=== PATIENT | male | born 1975 | race Caucasian/White ===

== ENCOUNTER 2018-10-02 03:12 | Observation (INO) | payer SELFPAY ==
[2018-10-02] MEDS ORDERED: Sodium Chloride 0.9% 1,000 ML IV ONE (03:15)
[2018-10-02] MEDS ORDERED: Ondansetron 4 MG/2 ML SDV IVPUSH ONE (03:15)
[2018-10-02] MEDS ORDERED: Ketorolac 30 MG/ML SDV IVPUSH ONE (03:15)
[2018-10-02] MEDS ORDERED: Sodium Chloride 0.9% 2.5 ML Syringe FLUSH PRN (03:15)
[2018-10-02] MEDS ORDERED: Sodium Chloride 0.9% 10 ML Syringe FLUSH PRN (03:15)
[2018-10-02] MEDS ORDERED: Morphine 2 MG/ML Syringe IVPUSH ONE ×2 (03:15→05:22)
--- NOTE | 2018-10-02 03:19 | EDM.PDOC ---
<Amy Reyes - Last Filed: 10/02/18 04:47> ED HPI GENERAL MEDICAL PROBLEM - General Chief Complaint: Abdominal Pain Stated Complaint: ABDOMINAL PAIN Time Seen by Provider: 10/02/18 03:14 - History of Present Illness INITIAL COMMENTS - FREE TEXT/NARRATIVE: HISTORY AND PHYSICAL: History of present illness: The patient is a 42-year-old male who presents with complaints of epigastric and right upper and mid abdominal pain that has been ongoing for 36 hours. He says he has a history of pancreatitis but there is no pain on the left and he also has a history of a cholecystectomy. He says the pain came on gradually and it does not radiate to his flank and he has no chest pain or upper respiratory symptoms. The patient says he did not have any [id number] pain meds to take 3 is used nothing to try to help with the pain over the last 36 hours. He has not had a fever but he has had nausea and vomiting. He has not had diarrhea and in fact he has not had a bowel movement for the last 2 or more days. He says he has been urinating and has no complaints of dysuria frequency or hematuria. He denies a history of appendectomy or any colon issues. He says he does not have a history of food intolerance and he does not take a lot of nonsteroidals or antacid products. He describes the pain as deep stabbing aching and burning and does radiate to the right lower abdomen. 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 Review of systems: As per history of present illness and below otherwise all systems reviewed and negative. Past medical history: As per history of present illness and as reviewed below otherwise noncontributory. Surgical history: As per history of present illness and as reviewed below otherwise noncontributory. Social history: No reported history of drug or alcohol abuse. Family history: As per history of present illness and as reviewed below otherwise noncontributory. Physical exam: General: Well-developed well-nourished man who is nontoxic and vital signs are noted by me HEENT: Atraumatic, normocephalic, negative for conjunctival pallor or scleral icterus, mucous membranes moist, throat clear, neck supple, nontender, trachea midline. Lungs: Clear to auscultation, breath sounds equal bilaterally, chest nontender. Heart: S1S2, regular and rhythm no overt murmurs. Abdomen: Soft, nondistended, mild epigastric right upper and right mid quadrant tenderness without rebound or guarding. Bowel sounds are hypoactive. Patient's pain seems to be more exaggerated than his exam. Negative for masses or hepatosplenomegaly. Negative for costovertebral tenderness. Pelvis: Stable nontender. Genitourinary: Deferred. Rectal: Deferred. Extremities: Atraumatic, negative for cords or calf pain. Neurovascular unremarkable. Neuro: Awake, alert, oriented. Cranial nerves II through XII unremarkable. Cerebellum unremarkable. Motor and sensory unremarkable throughout. Exam nonfocal. Diagnostics: CBC CMP INR amylase lipase H. pylori lactate UA with reflex CT scan of the abdomen and pelvis Therapeutics: IV fluids morphine Toradol Zofran and Protonix 0500: Case endorsed to Dr Keys to follow-up CT scan and disposition patient. Impression: Epigastric/right-sided abdominal pain, H. pylori positive Definitive disposition and diagnosis as appropriate pending reevaluation and review of above. Right Abdomen Pain Score (Numeric/FACES): 6 - Related Data Allergies Allergy/AdvReac Type Severity Reaction Status Date / Time No Known Allergies Allergy Verified 10/02/18 03:18 Home Meds: Home Meds . [No Known Home Meds] 10/02/18 [History] ED ROS GENERAL - Review of Systems Review Of Systems: ROS reveals no pertinent complaints other than HPI. ED EXAM, GENERAL - Physical Exam Exam: See Below (see Dictation) Course - Vital Signs Last Recorded V/S: Last Vital Signs Temp 97 F 10/02/18 05:14 Pulse 80 10/02/18 05:14 Resp 18 10/02/18 05:14 BP 140/99 H 10/02/18 05:14 Pulse Ox 98 10/02/18 05:14 - Orders/Labs/Meds Orders: Active Orders 24 hr Category Date Time Status CULTURE URINE [RM] Stat Lab 10/02/18 03:20 Received Sodium Chloride 0.9% [Saline Flush] Med 10/02/18 03:15 Active 10 ml FLUSH ASDIRECTED PRN Sodium Chloride 0.9% [Saline Flush] Med 10/02/18 03:15 Active 2.5 ml FLUSH ASDIRECTED PRN Saline Lock Insert [OM.PC] Stat Oth 10/02/18 03:14 Ordered Medication Orders Sodium Chloride (Saline Flush) 10 ml FLUSH ASDIRECTED PRN PRN Reason: Keep Vein Open Sodium Chloride (Saline Flush) 2.5 ml FLUSH ASDIRECTED PRN PRN Reason: Keep Vein Open Labs: Laboratory Tests 10/02/18 10/02/18 10/02/18 Range/Units 03:20 03:20 03:27 WBC 13.81 H (4.0-11.0) K/uL RBC 5.88 (4.50-5.90) M/uL Hgb 18.7 H (13.0-17.0) g/dL Hct 52.7 H (38.0-50.0) % MCV 89.6 (80.0-98.0) fL MCH 31.8 (27.0-32.0) pg MCHC 35.5 (31.0-37.0) g/dL RDW Std Deviation 43.9 (28.0-62.0) fl RDW Coeff of Case 13 (11.0-15.0) % Plt Count 341 (150-400) K/uL MPV 8.90 (7.40-12.00) fL Neut % (Auto) 51.9 (48.0-80.0) % Lymph % (Auto) 33.9 (16.0-40.0) % [place] % (Auto) 8.3 (0.0-15.0) % Eos % (Auto) 5.4 (0.0-7.0) % Baso % (Auto) 0.5 (0.0-1.5) % Neut # (Auto) 7.2 H (1.4-5.7) K/uL Lymph # (Auto) 4.7 H (0.6-2.4) K/uL [place] # (Auto) 1.1 H (0.0-0.8) K/uL Eos # (Auto) 0.7 (0.0-0.7) K/uL Baso # (Auto) 0.1 (0.0-0.1) K/uL Nucleated RBC % 0.0 /100WBC Nucleated RBCs # 0 K/uL INR Lactate (0.20-2.00) mmol/L Sodium (136-148) mmol/L Potassium (3.5-5.1) mmol/L Chloride (98-107) mmol/L Carbon Dioxide (21.0-32.0) mmol/L BUN (7.0-18.0) mg/dL Creatinine (0.8-1.3) mg/dL Est Cr Clr Drug Dosing mL/min Estimated GFR (MDRD) ml/min Glucose (74-106) mg/dL Calcium (8.5-10.1) mg/dL Total Bilirubin (0.2-1.0) mg/dL AST (15-37) IU/L ALT (14-63) IU/L Alkaline Phosphatase (46-116) U/L Total Protein (6.4-8.2) g/dL Albumin (3.4-5.0) g/dL Globulin (2.6-4.0) g/dL Albumin/Globulin Ratio (0.9-1.6) Amylase (25-115) U/L Lipase (73-393) U/L Urine Color YELLOW Urine Appearance CLEAR Urine pH 6.5 (5.0-8.0) Ur Specific [place] 1.020 (1.001-1.035) Urine Protein NEGATIVE (NEGATIVE) mg/dL Urine Glucose (UA) NEGATIVE (NEGATIVE) mg/dL Urine Ketones NEGATIVE (NEGATIVE) mg/dL Urine Occult Blood NEGATIVE (NEGATIVE) Urine Nitrite NEGATIVE (NEGATIVE) Urine Bilirubin NEGATIVE (NEGATIVE) Urine Urobilinogen 1.0 (<2.0) EU/dL Ur Leukocyte Esterase TRACE H (NEGATIVE) Urine RBC 0-2 (0-2/HPF) Urine WBC 2-4 (0-5/HPF) Ur Epithelial Cells RARE (NONE-FEW) Urine Bacteria FEW (NEGATIVE) Urine Opiates Screen NEGATIVE (NEGATIVE) Ur Oxycodone Screen NEGATIVE (NEGATIVE) Urine Methadone Screen NEGATIVE (NEGATIVE) Ur Barbiturates Screen NEGATIVE (NEGATIVE) Ur Phencyclidine Scrn NEGATIVE (NEGATIVE) Ur Amphetamine Screen NEGATIVE (NEGATIVE) U Methamphetamines Scrn NEGATIVE (NEGATIVE) U Benzodiazepines Scrn NEGATIVE (NEGATIVE) U Cocaine Metab Screen NEGATIVE (NEGATIVE) U Marijuana (THC) Screen NEGATIVE (NEGATIVE) H. pylori IgG Antibody (NEG) 10/02/18 10/02/18 10/02/18 Range/Units 03:27 03:27 03:27 WBC (4.0-11.0) K/uL RBC (4.50-5.90) M/uL Hgb (13.0-17.0) g/dL Hct (38.0-50.0) % MCV (80.0-98.0) fL MCH (27.0-32.0) pg MCHC (31.0-37.0) g/dL RDW Std Deviation (28.0-62.0) fl RDW Coeff of Case (11.0-15.0) % Plt Count (150-400) K/uL MPV (7.40-12.00) fL Neut % (Auto) (48.0-80.0) % Lymph % (Auto) (16.0-40.0) % [place] % (Auto) (0.0-15.0) % Eos % (Auto) (0.0-7.0) % Baso % (Auto) (0.0-1.5) % Neut # (Auto) (1.4-5.7) K/uL Lymph # (Auto) (0.6-2.4) K/uL [place] # (Auto) (0.0-0.8) K/uL Eos # (Auto) (0.0-0.7) K/uL Baso # (Auto) (0.0-0.1) K/uL Nucleated RBC % /100WBC Nucleated RBCs # K/uL INR 0.99 Lactate (0.20-2.00) mmol/L Sodium 140 (136-148) mmol/L Potassium 4.6 (3.5-5.1) mmol/L Chloride 102 (98-107) mmol/L Carbon Dioxide 27.2 (21.0-32.0) mmol/L BUN 12 (7.0-18.0) mg/dL Creatinine 1.2 (0.8-1.3) mg/dL Est Cr Clr Drug Dosing 95.14 mL/min Estimated GFR (MDRD) > 60.0 ml/min Glucose 118 H (74-106) mg/dL Calcium 9.2 (8.5-10.1) mg/dL Total Bilirubin 0.7 (0.2-1.0) mg/dL AST 19 (15-37) IU/L ALT 43 (14-63) IU/L Alkaline Phosphatase 70 (46-116) U/L Total Protein 7.4 (6.4-8.2) g/dL Albumin 3.9 (3.4-5.0) g/dL Globulin 3.5 (2.6-4.0) g/dL Albumin/Globulin Ratio 1.1 (0.9-1.6) Amylase 39 (25-115) U/L Lipase 77 (73-393) U/L Urine Color Urine Appearance Urine pH (5.0-8.0) Ur Specific [place] (1.001-1.035) Urine Protein (NEGATIVE) mg/dL Urine Glucose (UA) (NEGATIVE) mg/dL Urine Ketones (NEGATIVE) mg/dL Urine Occult Blood (NEGATIVE) Urine Nitrite (NEGATIVE) Urine Bilirubin (NEGATIVE) Urine Urobilinogen (<2.0) EU/dL Ur Leukocyte Esterase (NEGATIVE) Urine RBC (0-2/HPF) Urine WBC (0-5/HPF) Ur Epithelial Cells (NONE-FEW) Urine Bacteria (NEGATIVE) Urine Opiates Screen (NEGATIVE) Ur Oxycodone Screen (NEGATIVE) Urine Methadone Screen (NEGATIVE) Ur Barbiturates Screen (NEGATIVE) Ur Phencyclidine Scrn (NEGATIVE) Ur Amphetamine Screen (NEGATIVE) U Methamphetamines Scrn (NEGATIVE) U Benzodiazepines Scrn (NEGATIVE) U Cocaine Metab Screen (NEGATIVE) U Marijuana (THC) Screen (NEGATIVE) H. pylori IgG Antibody POSITIVE H (NEG) 10/02/18 Range/Units 03:27 WBC (4.0-11.0) K/uL RBC (4.50-5.90) M/uL Hgb (13.0-17.0) g/dL Hct (38.0-50.0) % MCV (80.0-98.0) fL MCH (27.0-32.0) pg MCHC (31.0-37.0) g/dL RDW Std Deviation (28.0-62.0) fl RDW Coeff of Case (11.0-15.0) % Plt Count (150-400) K/uL MPV (7.40-12.00) fL Neut % (Auto) (48.0-80.0) % Lymph % (Auto) (16.0-40.0) % [place] % (Auto) (0.0-15.0) % Eos % (Auto) (0.0-7.0) % Baso % (Auto) (0.0-1.5) % Neut # (Auto) (1.4-5.7) K/uL Lymph # (Auto) (0.6-2.4) K/uL [place] # (Auto) (0.0-0.8) K/uL Eos # (Auto) (0.0-0.7) K/uL Baso # (Auto) (0.0-0.1) K/uL Nucleated RBC % /100WBC Nucleated RBCs # K/uL INR Lactate 1.5 (0.20-2.00) mmol/L Sodium (136-148) mmol/L Potassium (3.5-5.1) mmol/L Chloride (98-107) mmol/L Carbon Dioxide (21.0-32.0) mmol/L BUN (7.0-18.0) mg/dL Creatinine (0.8-1.3) mg/dL Est Cr Clr Drug Dosing mL/min Estimated GFR (MDRD) ml/min Glucose (74-106) mg/dL Calcium (8.5-10.1) mg/dL Total Bilirubin (0.2-1.0) mg/dL AST (15-37) IU/L ALT (14-63) IU/L Alkaline Phosphatase (46-116) U/L Total Protein (6.4-8.2) g/dL Albumin (3.4-5.0) g/dL Globulin (2.6-4.0) g/dL Albumin/Globulin Ratio (0.9-1.6) Amylase (25-115) U/L Lipase (73-393) U/L Urine Color Urine Appearance Urine pH (5.0-8.0) Ur Specific [place] (1.001-1.035) Urine Protein (NEGATIVE) mg/dL Urine Glucose (UA) (NEGATIVE) mg/dL Urine Ketones (NEGATIVE) mg/dL Urine Occult Blood (NEGATIVE) Urine Nitrite (NEGATIVE) Urine Bilirubin (NEGATIVE) Urine Urobilinogen (<2.0) EU/dL Ur Leukocyte Esterase (NEGATIVE) Urine RBC (0-2/HPF) Urine WBC (0-5/HPF) Ur Epithelial Cells (NONE-FEW) Urine Bacteria (NEGATIVE) Urine Opiates Screen (NEGATIVE) Ur Oxycodone Screen (NEGATIVE) Urine Methadone Screen (NEGATIVE) Ur Barbiturates Screen (NEGATIVE) Ur Phencyclidine Scrn (NEGATIVE) Ur Amphetamine Screen (NEGATIVE) U Methamphetamines Scrn (NEGATIVE) U Benzodiazepines Scrn (NEGATIVE) U Cocaine Metab Screen (NEGATIVE) U Marijuana (THC) Screen (NEGATIVE) H. pylori IgG Antibody (NEG) Meds: Medications Generic Name Dose Route Start Last Admin Trade Name Freq PRN Reason Stop Dose Admin Sodium Chloride 10 ml 10/02/18 03:15 Saline Flush FLUSH ASDIRECTED PRN Keep Vein Open Sodium Chloride 2.5 ml 10/02/18 03:15 Saline Flush FLUSH ASDIRECTED PRN Keep Vein Open Discontinued Medications Generic Name Dose Route Start Last Admin Trade Name Freq PRN Reason Stop Dose Admin Sodium Chloride 1,000 mls @ 999 mls/hr 10/02/18 03:15 10/02/18 03:22 Normal Saline IV 10/02/18 04:15 999 mls/hr STAT ONE Administration Iopamidol 100 ml 10/02/18 04:18 10/02/18 04:28 Isovue-370 (76%) IVPUSH 10/02/18 04:19 100 ml ONETIME ONE Administration Ketorolac Tromethamine 30 mg 10/02/18 03:15 10/02/18 03:26 Toradol IVPUSH 10/02/18 03:16 30 mg ONETIME ONE Administration Morphine Sulfate 4 mg 10/02/18 03:15 10/02/18 03:26 Morphine IVPUSH 10/02/18 03:16 4 mg ONETIME ONE Administration Morphine Sulfate 2 mg 10/02/18 05:22 10/02/18 05:27 Morphine IVPUSH 10/02/18 05:23 2 mg ONETIME ONE Administration Ondansetron HCl 4 mg 10/02/18 03:15 10/02/18 03:25 Zofran IVPUSH 10/02/18 03:16 4 mg ONETIME ONE Administration Pantoprazole Sodium 80 mg 10/02/18 04:10 10/02/18 04:28 Protonix Iv IVPUSH 10/02/18 04:11 80 mg .BOLUS ONE Administration Sodium Chloride 20 ml 10/02/18 04:15 10/02/18 04:28 Normal Saline FLUSH 10/02/18 04:16 20 ml NOW STA Administration Departure - Departure Disposition: Refer to Observation Condition: Good Clinical Impression: H. pylori infection Abdominal pain Qualifiers: Abdominal location: unspecified location Qualified Code(s): R10.9 - Unspecified abdominal pain - Discharge Information Forms: ED Department Discharge <Eduardo Keys - Last Filed: 10/02/18 05:37> ED HPI GENERAL MEDICAL PROBLEM - History of Present Illness INITIAL COMMENTS - FREE TEXT/NARRATIVE: Patient is retired a couple of repeat doses of morphine still has significant 8 out of 10 pain rocking back and forth feel he'll do well at home is received maximal treatment as above with minimal benefit Admitted the patient for pain control further evaluation and treatment possible surgical consultation ED ROS GENERAL - Review of Systems Review Of Systems: See Below ED EXAM, GENERAL - Physical Exam Exam: See Below Departure - Departure Time of Disposition: 05:37 Condition: Fair
[2018-10-02 04:00] LABS: CHLORIDE,CL 102 mmol/L (98-107); SODIUM,NA 140 mmol/L (136-148)
[2018-10-02] MEDS ORDERED: Pantoprazole 40 MG Vial IVPUSH ONE (04:10)
[2018-10-02] MEDS ORDERED: Sodium Chloride 0.9% 20 ML SDV FLUSH STA (04:15)
[2018-10-02] MEDS ORDERED: Iopamidol 755 Mg/ML 100 ML Bottle IVPUSH ONE (04:18)
--- NOTE | 2018-10-02 05:11 | CT ---
INDICATION: Abdominal pain TECHNIQUE: CT abdomen and pelvis acquired with IV contrast. 100 mL of Isovue 370 administered. COMPARISON: None available FINDINGS: Lower chest: Unremarkable. Liver: Unremarkable. Spleen: Unremarkable. Pancreas: Mild prominence of the central pancreatic duct measuring up to 4 mm. Gallbladder and bile ducts: Cholecystectomy. Central infrahepatic biliary dilatation could be related to the postcholecystectomy state. Adrenal glands: Unremarkable. Kidneys: Unremarkable. GI tract: Unremarkable. Appendix is normal. Vascular structures: Unremarkable. Lymph nodes: Unremarkable. Miscellaneous: No free air or significant free fluid. Pelvic Organs: A contracted bladder. Unremarkable prostate. Bones: Degenerative changes in the lumbar spine with an L4-5 disc osteophyte complex, narrowing the central canal. IMPRESSION: No evidence of an acute process in the abdomen or pelvis. Mild intrahepatic biliary dilatation could be related to a post cholecystectomy state. If indicated, consider followup evaluation. Dictated by Lex Helm MD @ 10/02/2018 5:11:18 AM Please note that all CT scans at this facility use dose modulation, iterative reconstruction, and/or weight-based dosing when appropriate to reduce radiation dose to as low as reasonably achievable. Dictated by: Lex Helm MD @ 10/02/2018 05:11:23 (Electronically Signed)
[2018-10-02] MEDS: Sodium Chloride 0.9% 1,000 ML IV SCH ×2 (07:50→16:02)
[2018-10-02] MEDS: Morphine 2 MG/ML Syringe IVPUSH PRN ×4 (08:00→20:29)
[2018-10-02] MEDS: Enoxaparin 40 MG/0.4 ML Syringe SUBCUT SCH (08:02)
--- NOTE | 2018-10-02 08:31 | PCM.HP ---
H&P History of Present Illness - General Date of Service: 10/02/18 Admit Problem/Dx: Admission Diagnosis/Problem Admission Diagnosis/Problem Abdominal pain Source of Information: Patient History Limitations: Reports: No Limitations - History of Present Illness Initial Comments - Free Text/Narative: The patient is a 42-year-old gentleman who had presented to the emergency department with the chief complaint of severe abdominal pain. The patient has described the pain as sharp and stabbing in the epigastrium which radiates around the sides and to the back. The patient says that this is similar to a crit tightest that he had last year. The patient has been in the area for 10 weeks and he is [place]. The patient is also had nausea and vomiting associated with this. The patient denies any fever or chills. He's had no diarrhea or constipation. He reports alcohol use approximately "36 hours ago". The patient has said that he has been unable to eat secondary to the pain and medication in the emergency room only slightly helped his pain. The patient does not take any medications normally and he has been in fairly good health. Onset of Symptoms: Reports: Sudden Duration of Symptoms: Reports: Day(s): Location: Reports: Abdomen Quality: Reports: Same as Previous Episode, Stabbing, Throbbing Severity: Moderate Improves with: Reports: Medication Worsens with: Reports: Eating, Movement Context: Denies: Sick Contact Associated Symptoms: Reports: Nausea/Vomiting Right Abdomen Pain Score (Numeric/FACES): 7 - Related Data Allergies/Adverse Reactions: Allergies Allergy/AdvReac Type Severity Reaction Status Date / Time No Known Allergies Allergy Verified 10/02/18 03:18 Home Medications: Home Meds . [No Known Home Meds] 10/02/18 [History] Past Medical History HEENT History: Reports: None Cardiovascular History: Reports: None Respiratory History: Reports: None Gastrointestinal History: Reports: Pancreatitis Genitourinary History: Reports: None Musculoskeletal History: Reports: None Neurological History: Reports: None Psychiatric History: Reports: None Endocrine/Metabolic History: Reports: None Hematologic History: Reports: None Immunologic History: Reports: None Dermatologic History: Reports: None - Infectious Disease History Infectious Disease History: Reports: Chicken Pox - Past Surgical History HEENT Surgical History: Reports: Oral Surgery GI Surgical History: Reports: Cholecystectomy Male Surgical History: Reports: Other (See Below) Other Male Surgeries/Procedures: testicle removed Social & Family History - Tobacco Use Smoking Status *Q: Current Every Day Smoker Years of Tobacco use: 10 Packs/Tins Daily: 1 - Caffeine Use Caffeine Use: Reports: Energy Drinks - Alcohol Use Alcohol Use History: Yes Days Per Week of Alcohol Use: 3 Number of Drinks Per Day: 4 Total Drinks Per Week: 12 Date of Last Drink: 09/29/18 Alcohol Use in Last Twelve Months: Yes - Recreational Drug Use Recreational Drug Use: Yes Drug Use in Last 12 Months: Yes Recreational Drug Type: Reports: Methamphetamine Recreational Drug Use Frequency: Not Used In Over 3 Months - Living Situation & Occupation Living situation: Reports: , with Family (Family in [place]) Occupation: Employed H&P Review of Systems - Review of Systems: Review Of Systems: See Below General: Reports: Decreased Appetite HEENT: Reports: No Symptoms Pulmonary: Reports: No Symptoms Cardiovascular: Reports: No Symptoms Gastrointestinal: Reports: Abdominal Pain, Nausea, Vomiting. Denies: Hematemesis, Hematochezia Genitourinary: Reports: No Symptoms Musculoskeletal: Reports: No Symptoms Skin: Reports: No Symptoms Psychiatric: Reports: No Symptoms Neurological: Reports: No Symptoms Hematologic/Lymphatic: Reports: No Symptoms Immunologic: Reports: No Symptoms Exam - Exam Exam: See Below - Vital Signs Vital Signs: Last Vital Signs Temp 36.4 C 10/02/18 07:00 Pulse 75 10/02/18 07:00 Resp 16 10/02/18 07:00 BP 140/79 10/02/18 07:00 Pulse Ox 95 10/02/18 07:00 Weight: 114.714 kg - Exam Quality Assessment: No: Supplemental Oxygen General: Alert, Oriented, Cooperative, Mild Distress HEENT: Conjunctiva Clear, EACs Clear, EOMI, Pupils Equal, PERRLA. No: Mucosa Moist & [place] (Dry) Neck: Supple, Trachea Midline. No: Carotid Bruit Lungs: Clear to Auscultation, Normal Respiratory Effort Cardiovascular: Regular Rate, Regular Rhythm GI/Abdominal Exam: Normal Bowel Sounds, Soft, No Distention, No Mass, Tender ( Epigastric region). No: Guarding, Rigid, Rebound (Male) Exam: Deferred Rectal (Males) Exam: Deferred Back Exam: Normal Inspection, Full Range of Motion Extremities: Normal Inspection, No Pedal Edema Skin: Warm, Dry, Intact Neurological: Cranial Nerves Intact Psychiatric: Alert, Normal Affect, Normal Mood - Patient Data Lab Results Last 24 hrs: Laboratory Results - last 24 hr 10/02/18 10/02/18 10/02/18 Range/Units 03:20 03:20 03:27 WBC 13.81 H (4.0-11.0) K/uL RBC 5.88 (4.50-5.90) M/uL Hgb 18.7 H (13.0-17.0) g/dL Hct 52.7 H (38.0-50.0) % MCV 89.6 (80.0-98.0) fL MCH 31.8 (27.0-32.0) pg MCHC 35.5 (31.0-37.0) g/dL RDW Std Deviation 43.9 (28.0-62.0) fl RDW Coeff of Case 13 (11.0-15.0) % Plt Count 341 (150-400) K/uL MPV 8.90 (7.40-12.00) fL Neut % (Auto) 51.9 (48.0-80.0) % Lymph % (Auto) 33.9 (16.0-40.0) % [place] % (Auto) 8.3 (0.0-15.0) % Eos % (Auto) 5.4 (0.0-7.0) % Baso % (Auto) 0.5 (0.0-1.5) % Neut # (Auto) 7.2 H (1.4-5.7) K/uL Lymph # (Auto) 4.7 H (0.6-2.4) K/uL [place] # (Auto) 1.1 H (0.0-0.8) K/uL Eos # (Auto) 0.7 (0.0-0.7) K/uL Baso # (Auto) 0.1 (0.0-0.1) K/uL Nucleated RBC % 0.0 /100WBC Nucleated RBCs # 0 K/uL INR Lactate (0.20-2.00) mmol/L Sodium (136-148) mmol/L Potassium (3.5-5.1) mmol/L Chloride (98-107) mmol/L Carbon Dioxide (21.0-32.0) mmol/L BUN (7.0-18.0) mg/dL Creatinine (0.8-1.3) mg/dL Est Cr Clr Drug Dosing mL/min Estimated GFR (MDRD) ml/min Glucose (74-106) mg/dL Calcium (8.5-10.1) mg/dL Magnesium (1.8-2.4) mg/dL Total Bilirubin (0.2-1.0) mg/dL AST (15-37) IU/L ALT (14-63) IU/L Alkaline Phosphatase (46-116) U/L C-Reactive Protein (0.00-0.90) mg/dL Total Protein (6.4-8.2) g/dL Albumin (3.4-5.0) g/dL Globulin (2.6-4.0) g/dL Albumin/Globulin Ratio (0.9-1.6) Amylase (25-115) U/L Lipase (73-393) U/L Urine Color YELLOW Urine Appearance CLEAR Urine pH 6.5 (5.0-8.0) Ur Specific Gary 1.020 (1.001-1.035) Urine Protein NEGATIVE (NEGATIVE) mg/dL Urine Glucose (UA) NEGATIVE (NEGATIVE) mg/dL Urine Ketones NEGATIVE (NEGATIVE) mg/dL Urine Occult Blood NEGATIVE (NEGATIVE) Urine Nitrite NEGATIVE (NEGATIVE) Urine Bilirubin NEGATIVE (NEGATIVE) Urine Urobilinogen 1.0 (<2.0) EU/dL Ur Leukocyte Esterase TRACE H (NEGATIVE) Urine RBC 0-2 (0-2/HPF) Urine WBC 2-4 (0-5/HPF) Ur Epithelial Cells RARE (NONE-FEW) Urine Bacteria FEW (NEGATIVE) Urine Opiates Screen NEGATIVE (NEGATIVE) Ur Oxycodone Screen NEGATIVE (NEGATIVE) Urine Methadone Screen NEGATIVE (NEGATIVE) Ur Barbiturates Screen NEGATIVE (NEGATIVE) Ur Phencyclidine Scrn NEGATIVE (NEGATIVE) Ur Amphetamine Screen NEGATIVE (NEGATIVE) U Methamphetamines Scrn NEGATIVE (NEGATIVE) U Benzodiazepines Scrn NEGATIVE (NEGATIVE) U Cocaine Metab Screen NEGATIVE (NEGATIVE) U Marijuana (THC) Screen NEGATIVE (NEGATIVE) H. pylori IgG Antibody (NEG) 10/02/18 10/02/18 10/02/18 Range/Units 03:27 03:27 03:27 WBC (4.0-11.0) K/uL RBC (4.50-5.90) M/uL Hgb (13.0-17.0) g/dL Hct (38.0-50.0) % MCV (80.0-98.0) fL MCH (27.0-32.0) pg MCHC (31.0-37.0) g/dL RDW Std Deviation (28.0-62.0) fl RDW Coeff of Case (11.0-15.0) % Plt Count (150-400) K/uL MPV (7.40-12.00) fL Neut % (Auto) (48.0-80.0) % Lymph % (Auto) (16.0-40.0) % [place] % (Auto) (0.0-15.0) % Eos % (Auto) (0.0-7.0) % Baso % (Auto) (0.0-1.5) % Neut # (Auto) (1.4-5.7) K/uL Lymph # (Auto) (0.6-2.4) K/uL [place] # (Auto) (0.0-0.8) K/uL Eos # (Auto) (0.0-0.7) K/uL Baso # (Auto) (0.0-0.1) K/uL Nucleated RBC % /100WBC Nucleated RBCs # K/uL INR 0.99 Lactate (0.20-2.00) mmol/L Sodium 140 (136-148) mmol/L Potassium 4.6 (3.5-5.1) mmol/L Chloride 102 (98-107) mmol/L Carbon Dioxide 27.2 (21.0-32.0) mmol/L BUN 12 (7.0-18.0) mg/dL Creatinine 1.2 (0.8-1.3) mg/dL Est Cr Clr Drug Dosing 95.14 mL/min Estimated GFR (MDRD) > 60.0 ml/min Glucose 118 H (74-106) mg/dL Calcium 9.2 (8.5-10.1) mg/dL Magnesium (1.8-2.4) mg/dL Total Bilirubin 0.7 (0.2-1.0) mg/dL AST 19 (15-37) IU/L ALT 43 (14-63) IU/L Alkaline Phosphatase 70 (46-116) U/L C-Reactive Protein (0.00-0.90) mg/dL Total Protein 7.4 (6.4-8.2) g/dL Albumin 3.9 (3.4-5.0) g/dL Globulin 3.5 (2.6-4.0) g/dL Albumin/Globulin Ratio 1.1 (0.9-1.6) Amylase 39 (25-115) U/L Lipase 77 (73-393) U/L Urine Color Urine Appearance Urine pH (5.0-8.0) Ur Specific Gary (1.001-1.035) Urine Protein (NEGATIVE) mg/dL Urine Glucose (UA) (NEGATIVE) mg/dL Urine Ketones (NEGATIVE) mg/dL Urine Occult Blood (NEGATIVE) Urine Nitrite (NEGATIVE) Urine Bilirubin (NEGATIVE) Urine Urobilinogen (<2.0) EU/dL Ur Leukocyte Esterase (NEGATIVE) Urine RBC (0-2/HPF) Urine WBC (0-5/HPF) Ur Epithelial Cells (NONE-FEW) Urine Bacteria (NEGATIVE) Urine Opiates Screen (NEGATIVE) Ur Oxycodone Screen (NEGATIVE) Urine Methadone Screen (NEGATIVE) Ur Barbiturates Screen (NEGATIVE) Ur Phencyclidine Scrn (NEGATIVE) Ur Amphetamine Screen (NEGATIVE) U Methamphetamines Scrn (NEGATIVE) U Benzodiazepines Scrn (NEGATIVE) U Cocaine Metab Screen (NEGATIVE) U Marijuana (THC) Screen (NEGATIVE) H. pylori IgG Antibody POSITIVE H (NEG) 10/02/18 10/02/18 Range/Units 03:27 03:27 WBC (4.0-11.0) K/uL RBC (4.50-5.90) M/uL Hgb (13.0-17.0) g/dL Hct (38.0-50.0) % MCV (80.0-98.0) fL MCH (27.0-32.0) pg MCHC (31.0-37.0) g/dL RDW Std Deviation (28.0-62.0) fl RDW Coeff of Case (11.0-15.0) % Plt Count (150-400) K/uL MPV (7.40-12.00) fL Neut % (Auto) (48.0-80.0) % Lymph % (Auto) (16.0-40.0) % [place] % (Auto) (0.0-15.0) % Eos % (Auto) (0.0-7.0) % Baso % (Auto) (0.0-1.5) % Neut # (Auto) (1.4-5.7) K/uL Lymph # (Auto) (0.6-2.4) K/uL [place] # (Auto) (0.0-0.8) K/uL Eos # (Auto) (0.0-0.7) K/uL Baso # (Auto) (0.0-0.1) K/uL Nucleated RBC % /100WBC Nucleated RBCs # K/uL INR Lactate 1.5 (0.20-2.00) mmol/L Sodium (136-148) mmol/L Potassium (3.5-5.1) mmol/L Chloride (98-107) mmol/L Carbon Dioxide (21.0-32.0) mmol/L BUN (7.0-18.0) mg/dL Creatinine (0.8-1.3) mg/dL Est Cr Clr Drug Dosing mL/min Estimated GFR (MDRD) ml/min Glucose (74-106) mg/dL Calcium (8.5-10.1) mg/dL Magnesium 2.0 (1.8-2.4) mg/dL Total Bilirubin (0.2-1.0) mg/dL AST (15-37) IU/L ALT (14-63) IU/L Alkaline Phosphatase (46-116) U/L C-Reactive Protein <0.20 (0.00-0.90) mg/dL Total Protein (6.4-8.2) g/dL Albumin (3.4-5.0) g/dL Globulin (2.6-4.0) g/dL Albumin/Globulin Ratio (0.9-1.6) Amylase (25-115) U/L Lipase (73-393) U/L Urine Color Urine Appearance Urine pH (5.0-8.0) Ur Specific Gary (1.001-1.035) Urine Protein (NEGATIVE) mg/dL Urine Glucose (UA) (NEGATIVE) mg/dL Urine Ketones (NEGATIVE) mg/dL Urine Occult Blood (NEGATIVE) Urine Nitrite (NEGATIVE) Urine Bilirubin (NEGATIVE) Urine Urobilinogen (<2.0) EU/dL Ur Leukocyte Esterase (NEGATIVE) Urine RBC (0-2/HPF) Urine WBC (0-5/HPF) Ur Epithelial Cells (NONE-FEW) Urine Bacteria (NEGATIVE) Urine Opiates Screen (NEGATIVE) Ur Oxycodone Screen (NEGATIVE) Urine Methadone Screen (NEGATIVE) Ur Barbiturates Screen (NEGATIVE) Ur Phencyclidine Scrn (NEGATIVE) Ur Amphetamine Screen (NEGATIVE) U Methamphetamines Scrn (NEGATIVE) U Benzodiazepines Scrn (NEGATIVE) U Cocaine Metab Screen (NEGATIVE) U Marijuana (THC) Screen (NEGATIVE) H. pylori IgG Antibody (NEG) Result Diagrams: 10/02/18 03:27 10/02/18 03:27 - Problem List (1) Pancreatitis, chronic SNOMED Code(s): 327289475 ICD Code: K86.1 - OTHER CHRONIC PANCREATITIS Status: Acute Priority: High Current Visit: Yes Qualifiers: Pancreatitis type: alcohol induced Qualified Code(s): K86.0 - Alcohol- induced chronic pancreatitis (2) H. pylori infection SNOMED Code(s): 261197760 ICD Code: A04.8 - OTHER SPECIFIED BACTERIAL INTESTINAL INFECTIONS Status: Chronic Priority: High Current Visit: Yes (3) Nausea & vomiting SNOMED Code(s): 36148947 ICD Code: R11.2 - NAUSEA WITH VOMITING, UNSPECIFIED Status: Acute Current Visit: Yes (4) Alcohol abuse SNOMED Code(s): 80626765 ICD Code: F10.10 - ALCOHOL ABUSE, UNCOMPLICATED Status: Chronic Priority : Medium Current Visit: Yes (5) Tobacco abuse SNOMED Code(s): 819473972 ICD Code: Z72.0 - TOBACCO USE Status: Chronic Priority: Medium Current Visit: Yes Problem List Initiated/Reviewed/Updated: Yes Orders Last 24hrs: Active Orders 24 hr Category Date Time Status Admission Status [Patient Status] [ADT] Stat ADT 10/02/18 05:37 Active Oxygen Therapy [RC] PRN Care 10/02/18 06:44 Active Up ad Coco [RC] ASDIRECTED Care 10/02/18 06:44 Active VTE/DVT Education [RC] PER UNIT ROUTINE Care 10/02/18 06:44 Active Vital Signs [RC] Q4H Care 10/02/18 06:44 Active Nothing per Oral Now Diet [DIET] Diet 10/02/18 Breakfast Active CULTURE URINE [RM] Stat Lab 10/02/18 03:20 Received Enoxaparin [Lovenox] Med 10/02/18 07:00 Active 40 mg SUBCUT Q24H Morphine Med 10/02/18 06:44 Active 2 mg IVPUSH Q4H PRN Sodium Chloride 0.9% [Normal Saline] 1,000 ml Med 10/02/18 06:45 Active IV ASDIRECTED Sodium Chloride 0.9% [Saline Flush] Med 10/02/18 03:15 Active 10 ml FLUSH ASDIRECTED PRN Sodium Chloride 0.9% [Saline Flush] Med 10/02/18 03:15 Active 2.5 ml FLUSH ASDIRECTED PRN Saline Lock Insert [OM.PC] Stat Oth 10/02/18 03:14 Ordered Resuscitation Status Routine Resus Stat 10/02/18 06:44 Ordered Medication Orders Enoxaparin Sodium (Lovenox) 40 mg SUBCUT Q24H [facility] Last Admin: 10/02/18 08:02 Dose: 40 mg Sodium Chloride (Normal Saline) 1,000 mls @ 125 mls/hr IV ASDIRECTED LEONID Last Admin: 10/02/18 07:50 Dose: 125 mls/hr Morphine Sulfate (Morphine) 2 mg IVPUSH Q4H PRN PRN Reason: Pain (severe 7-10) Stop: 10/03/18 06:45 Last Admin: 10/02/18 08:00 Dose: 2 mg Sodium Chloride (Saline Flush) 10 ml FLUSH ASDIRECTED PRN PRN Reason: Keep Vein Open Sodium Chloride (Saline Flush) 2.5 ml FLUSH ASDIRECTED PRN PRN Reason: Keep Vein Open Assessment/Plan Comment:: The patient is a 42-year-old gentleman who presented to the emergency room out of concern primarily for epigastric abdominal pain. On further interview the patient says that he has had pancreatitis in the past. 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 The patient's calcium is normal. The patient does have H. pylori infection as well and he'll be started on eradication medications to include amoxicillin, clarithromycin and I started him on IV Protonix. I've also consulted general surgery with regards to evaluate for possible endoscopy secondary to his abdominal pain. He also has been strongly counseled with regards to alcohol and tobacco abuse and I suspect that the patient is likely minimizing his alcohol usage. The patient does not have any symptoms consistent with withdrawal and CIWAA protocol will be ordered if necessary. The patient will also be kept nothing by mouth. After the patient on IV of normal saline at 125 mL per hour. The patient will also be kept on DVT prophylaxis with the use of Lovenox. He has been encouraged to ambulate. The patient should be appropriate for discharge in 1-2 days depending upon the symptomatology and results of possible EGD.
[2018-10-02] MEDS: Pantoprazole 40 MG in Sodium Chloride 0.9% 10 ML IVPUSH SCH ×2 (08:57→20:28)
[2018-10-02] MEDS: Amoxicillin 500 MG Cap PO SCH ×2 (09:01→20:29)
--- NOTE | 2018-10-02 19:18 | HP ---
DATE OF : 1975 PRIMARY CARE PHYSICIAN: None PCP Consult was called by Dr. Carr CONCERNING QUESTION: Positive H pylori titer. HISTORY OF PRESENT ILLNESS: The patient is 42 years obese gentleman, BMI of 33.5 and complained about several days of abdominal pain and pain does not resolve with pain medications, the patient seeked help in emergency room, workup include CAT scan, and shows maybe minimal dilated intrahepatic duct. The patient had cholecystectomy, otherwise no acute abdominal process. However on blood work, the patient was noted to have positive titers on H pylori. Surgery was then consulted for possible EGD. The patient remarked the pain is 9/10 currently, and denied black tarry stool, denied shortness of breath, denied chest pain, denied lack of energy. The patient remarked that he had similar episodes six months ago and was diagnosed with pancreatitis. Again, the patient's gallbladder surgery was 18 months ago and it was unclear despite several back and forth questioning that the patient had pancreatitis during the gallbladder surgery or not, cannot get the answer. The patient remarked he has gallstone for the gallbladder surgery. Currently, the patient remarked the pain is in epigastrium radiated to the back, similar to the gallbladder situation. PAST MEDICAL HISTORY: Significant for no diabetic, [place], CVA, or hypertension. PAST SURGICAL HISTORY: Gallbladder surgery. ALLERGIES: Please refer nursing for details. MEDICATION: Please refer nursing for details. LABORATORY VALUES: White count is 13.8, H and H are 19 and 53, and platelet is 341. BUN is 12, creatinine is 1.2, glucose is 118, total bilirubin is 0.7, AST and ALT are 19 and 43, alkaline phosphatase is 70. His urinalysis has 2-4 white cells and 0-2 RBC. Serology: H pylori IgG antibody is positive. PHYSICAL EXAMINATION: GENERAL: A very pleasant young gentleman, in no acute distress. HEENT: Normocephalic and atraumatic. Sclerae anicteric. LUNGS: Clear to auscultation. HEART: Regular rate and rhythm. ABDOMEN: Soft, nondistended. No pulsating tender midline abdominal structure. Questionable subjective tenderness. No rebound tenderness. DIAGNOSTIC DATA: CT report: No evidence of acute process in abdomen and pelvis. Mildly intrahepatic ductal dilatation. IMPRESSION: Not very impressive with examination, although the patient states pain is 9/10, and on examination does not really feel that. Normal bowel sounds. CAT scan does not show any intra-abdominal process, however the intrahepatic ductal dilatation probably benefit from ultrasound workup to delineate whether there is any retained stone and we will follow the patient with you. EVELYN PARRA /[id number] MTDD
[2018-10-03] MEDS: Morphine 2 MG/ML Syringe IVPUSH PRN ×2 (00:43→04:35)
[2018-10-03] MEDS: Sodium Chloride 0.9% 1,000 ML IV SCH (04:36)
[2018-10-03] MEDS: Enoxaparin 40 MG/0.4 ML Syringe SUBCUT SCH (06:39)
[2018-10-03 07:35] LABS: CHLORIDE,CL 106 mmol/L (98-107); SODIUM,NA 139 mmol/L (136-148)
--- NOTE | 2018-10-03 08:39 | PCM.DCSUM1 ---
Discharge Summary - Hospital Course HPI Initial Comments: The patient was admitted secondary to intractable abdominal pain. He is found to be positive for H. pylori antigen. Diagnosis: Stroke: No - Discharge Data Discharge Date: 10/03/18 Discharge Disposition: Home, Self-Care 01 Condition: Good - Discharge Diagnosis/Problem(s) (1) Pancreatitis, chronic SNOMED Code(s): 118041001 ICD Code: K86.1 - OTHER CHRONIC PANCREATITIS Status: Chronic Priority: High Current Visit: Yes Qualifiers: Pancreatitis type: alcohol induced Qualified Code(s): K86.0 - Alcohol- induced chronic pancreatitis (2) H. pylori infection SNOMED Code(s): 557492974 ICD Code: A04.8 - OTHER SPECIFIED BACTERIAL INTESTINAL INFECTIONS Status: Chronic Priority: High Current Visit: Yes (3) Nausea & vomiting SNOMED Code(s): 14327635 ICD Code: R11.2 - NAUSEA WITH VOMITING, UNSPECIFIED Status: Resolved Current Visit: Yes (4) Alcohol abuse SNOMED Code(s): 99884123 ICD Code: F10.10 - ALCOHOL ABUSE, UNCOMPLICATED Status: Chronic Priority : Medium Current Visit: Yes (5) Tobacco abuse SNOMED Code(s): 711121898 ICD Code: Z72.0 - TOBACCO USE Status: Chronic Priority: Medium Current Visit: Yes - Patient Summary/Data Consults: Consultations 10/02/18 08:35 Consult to Physician [CONS] Routine Hospital Course: The patient is a 42-year-old gentleman who presented to the emergency department on October 02, 2018 secondary to severe abdominal pain. Patient says that he has a history of pancreatitis and that this feels similar. The patient was admitted primarily out of pain control as CT scan did not show any evidence of pancreatitis. Patient's amylase was also normal. Because of the patient's severity of his abdominal pain general surgeon was consulted. Surgeon had opined that this is not likely a surgical case. The patient was noted however, to be positive for H. pylori antigen and he was immediately started on clarithromycin and amoxicillin. The patient had tolerated these medications well. He is also placed on Protonix 40 mg IV twice a day. The patient has been advised that with possibility of chronic pancreatitis he has been recommended to avoid alcohol consumption completely. Through the short course of hospitalization the patient had continued to improve. He did have some remaining abdominal pain although this significantly less than admission. The patient has been discharged with H. pylori Prevpac to use as directed. He is also been discharged with Carafate take 1 g 3 times a day with meals. The patient also had been given a short course of tramadol 50 mg every 4 hours when necessary abdominal pain and #10 were given. The patient has been recommended to follow-up with resident clinic as he does not have a primary care physician here and he is also to follow-up with general surgeon Dr. Raz Dyson as recommended. The patient has been recommended to continue with his diet as tolerated. He is also to have activity as tolerated. The patient has been hemodynamically stable and he is discharged from acute hospitalization with the recommendations above. - Patient Instructions Diet: Heart Healthy Diet Activity: As Tolerated Notify Provider of: Fever, Increased Pain - Discharge Plan *PRESCRIPTION DRUG MONITORING PROGRAM REVIEWED*: No *COPY OF PRESCRIPTION DRUG MONITORING REPORT IN PATIENT DIDI: No Prescriptions/Med Rec: Sucralfate [Carafate] 1 gm PO Q8HR #12 tablet Lansoprazole/Amoxiciln/Clarith [Prevpac Patient Pack] 1 each PO ASDIRECTED #1 combo..pkg traMADol [Ultram] 50 mg PO Q4H PRN #10 tab PRN Reason: Abdominal Pain Home Medications: Home Meds Lansoprazole/Amoxiciln/Clarith [Prevpac Patient Pack] 1 each PO ASDIRECTED #1 combo..pkg 10/03/18 [Rx] Sucralfate [Carafate] 1 gm PO Q8HR #12 tablet 10/03/18 [Rx] traMADol [Ultram] 50 mg PO Q4H PRN #10 tab 10/03/18 [Rx] Oxygen Therapy Mode: Room Air Patient Handouts: Helicobacter Pylori Infection, Antibiotic Medicine, Adult, [id number], Amoxicillin; Clarithromycin; Lansoprazole tablets and capsules, Tramadol tablets, Sucralfate tablets Forms: ED Department Discharge Referrals: Yenny Keys DO [Resident] - Raz Dyson MD [Physician] - PCP,None [Primary Care Provider] - - Discharge Summary/Plan Comment DC Time >30 min.: Yes - General Info Date of Service: 10/03/18 Admission Dx/Problem (Free Text: Admission Diagnosis/Problem Admission Diagnosis/Problem Abdominal pain Subjective Update: Doing better today. Functional Status: Reports: Pain Controlled - Review of Systems General: Reports: No Symptoms HEENT: Reports: No Symptoms Pulmonary: Reports: No Symptoms Cardiovascular: Reports: No Symptoms Gastrointestinal: Reports: No Symptoms Genitourinary: Reports: No Symptoms Musculoskeletal: Reports: No Symptoms Skin: Reports: No Symptoms Neurological: Reports: No Symptoms Psychiatric: Reports: No Symptoms - Patient Data Vitals - Most Recent: Last Vital Signs Temp 36.5 C 10/03/18 07:40 Pulse 70 10/03/18 07:40 Resp 19 10/03/18 07:40 BP 129/76 10/03/18 07:40 Pulse Ox 95 10/03/18 07:40 Weight - Most Recent: 114.714 kg I&O - Last 24 hours: Intake & Output 10/02/18 10/03/18 10/03/18 22:59 06:59 14:59 Intake Total 1010 3110 Output Total 400 900 Balance 610 2210 Lab Results - Last 24 hrs: Laboratory Results - last 24 hr 10/03/18 10/03/18 Range/Units 07:10 07:10 WBC 6.80 (4.0-11.0) K/uL RBC 5.13 (4.50-5.90) M/uL Hgb 15.9 (13.0-17.0) g/dL Hct 47.0 (38.0-50.0) % MCV 91.6 (80.0-98.0) fL MCH 31.0 (27.0-32.0) pg MCHC 33.8 (31.0-37.0) g/dL RDW Std Deviation 44.7 (28.0-62.0) fl RDW Coeff of Case 13 (11.0-15.0) % Plt Count 248 (150-400) K/uL MPV 8.80 (7.40-12.00) fL Neut % (Auto) 38.4 L (48.0-80.0) % Lymph % (Auto) 42.4 H (16.0-40.0) % [place] % (Auto) 9.4 (0.0-15.0) % Eos % (Auto) 9.1 H (0.0-7.0) % Baso % (Auto) 0.7 (0.0-1.5) % Neut # (Auto) 2.6 (1.4-5.7) K/uL Lymph # (Auto) 2.9 H (0.6-2.4) K/uL [place] # (Auto) 0.6 (0.0-0.8) K/uL Eos # (Auto) 0.6 (0.0-0.7) K/uL Baso # (Auto) 0.1 (0.0-0.1) K/uL Nucleated RBC % 0.0 /100WBC Nucleated RBCs # 0 K/uL Sodium 139 (136-148) mmol/L Potassium 4.5 (3.5-5.1) mmol/L Chloride 106 (98-107) mmol/L Carbon Dioxide 25.7 (21.0-32.0) mmol/L BUN 12 (7.0-18.0) mg/dL Creatinine 1.0 (0.8-1.3) mg/dL Est Cr Clr Drug Dosing 114.17 mL/min Estimated GFR (MDRD) > 60.0 ml/min Glucose 89 (74-106) mg/dL Calcium 8.3 L (8.5-10.1) mg/dL Med Orders - Current: Current Medications Amoxicillin (Amoxil) 500 mg PO Q12HR [facility] Last Admin: 10/02/18 20:29 Dose: 500 mg Clarithromycin (Biaxin) 500 mg PO BID [facility] Last Admin: 10/02/18 20:28 Dose: 500 mg Enoxaparin Sodium (Lovenox) 40 mg SUBCUT Q24H [facility] Last Admin: 10/03/18 06:39 Dose: 40 mg Sodium Chloride (Normal Saline) 1,000 mls @ 125 mls/hr IV ASDIRECTED [facility] Last Admin: 10/03/18 04:36 Dose: 125 mls/hr Pantoprazole Sodium 40 mg/ (Sodium Chloride) 10 mls @ 300 mls/hr IVPUSH BID [facility] Last Admin: 10/02/18 20:28 Dose: 300 mls/hr Sodium Chloride (Saline Flush) 10 ml FLUSH ASDIRECTED PRN PRN Reason: Keep Vein Open Sodium Chloride (Saline Flush) 2.5 ml FLUSH ASDIRECTED PRN PRN Reason: Keep Vein Open Discontinued Medications Sodium Chloride (Normal Saline) 1,000 mls @ 999 mls/hr IV STAT ONE Stop: 10/02/18 04:15 Last Admin: 10/02/18 03:22 Dose: 999 mls/hr Iopamidol (Isovue-370 (76%)) 100 ml IVPUSH ONETIME ONE Stop: 10/02/18 04:19 Last Admin: 10/02/18 04:28 Dose: 100 ml Ketorolac Tromethamine (Toradol) 30 mg IVPUSH ONETIME ONE Stop: 10/02/18 03:16 Last Admin: 10/02/18 03:26 Dose: 30 mg Morphine Sulfate (Morphine) 4 mg IVPUSH ONETIME ONE Stop: 10/02/18 03:16 Last Admin: 10/02/18 03:26 Dose: 4 mg Morphine Sulfate (Morphine) 2 mg IVPUSH ONETIME ONE Stop: 10/02/18 05:23 Last Admin: 10/02/18 05:27 Dose: 2 mg Morphine Sulfate (Morphine) 2 mg IVPUSH Q4H PRN PRN Reason: Pain (severe 7-10) Stop: 10/03/18 06:45 Last Admin: 10/03/18 04:35 Dose: 2 mg Ondansetron HCl (Zofran) 4 mg IVPUSH ONETIME ONE Stop: 10/02/18 03:16 Last Admin: 10/02/18 03:25 Dose: 4 mg Pantoprazole Sodium (Protonix Iv) 80 mg IVPUSH .BOLUS ONE Stop: 10/02/18 04:11 Last Admin: 10/02/18 04:28 Dose: 80 mg Sodium Chloride (Normal Saline) 20 ml FLUSH NOW STA Stop: 10/02/18 04:16 Last Admin: 10/02/18 04:28 Dose: 20 ml - Exam General: Reports: Alert, Oriented, Cooperative, No Acute Distress HEENT: Reports: Pupils Equal, Pupils Reactive, EOMI, Mucous Membr. Moist/[place] Neck: Reports: Supple, Trachea Midline Lungs: Reports: Clear to Auscultation, Normal Respiratory Effort Cardiovascular: Reports: Regular Rate, Regular Rhythm GI/Abdominal Exam: Normal Bowel Sounds, Soft, Non-Tender, No Distention (Male) Exam: Deferred Rectal (Males) Exam: Deferred Back Exam: Reports: Normal Inspection, Full Range of Motion Extremities: Normal Inspection, Normal Range of Motion, Non-Tender, No Pedal Edema Skin: Reports: Warm, Dry, Intact Neurological: Reports: No New Focal Deficit Psy/Mental Status: Reports: Alert, Normal Affect, Normal Mood
[2018-10-03] MEDS: Amoxicillin 500 MG Cap PO SCH (09:29)
[2018-10-03] MEDS: Pantoprazole 40 MG in Sodium Chloride 0.9% 10 ML IVPUSH SCH (09:33)
--- NOTE | 2018-10-03 09:41 | PCM.SURGPN ---
- General Info Date of Service: 10/03/18 - Review of Systems General: Reports: No Symptoms Gastrointestinal: Reports: No Symptoms - Patient Data Vitals - Most Recent: Last Vital Signs Temp 97.7 F 10/03/18 07:40 Pulse 70 10/03/18 07:40 Resp 19 10/03/18 07:40 BP 129/76 10/03/18 07:40 Pulse Ox 95 10/03/18 07:40 Weight - Most Recent: 252 lb 14.4 oz I&O - Last 24 Hours: Intake & Output 10/02/18 10/03/18 10/03/18 22:59 06:59 14:59 Intake Total 1010 3110 Output Total 400 900 Balance 610 2210 Lab Results Last 24 Hrs: Laboratory Results - last 24 hr 10/03/18 10/03/18 Range/Units 07:10 07:10 WBC 6.80 (4.0-11.0) K/uL RBC 5.13 (4.50-5.90) M/uL Hgb 15.9 (13.0-17.0) g/dL Hct 47.0 (38.0-50.0) % MCV 91.6 (80.0-98.0) fL MCH 31.0 (27.0-32.0) pg MCHC 33.8 (31.0-37.0) g/dL RDW Std Deviation 44.7 (28.0-62.0) fl RDW Coeff of Case 13 (11.0-15.0) % Plt Count 248 (150-400) K/uL MPV 8.80 (7.40-12.00) fL Neut % (Auto) 38.4 L (48.0-80.0) % Lymph % (Auto) 42.4 H (16.0-40.0) % [place] % (Auto) 9.4 (0.0-15.0) % Eos % (Auto) 9.1 H (0.0-7.0) % Baso % (Auto) 0.7 (0.0-1.5) % Neut # (Auto) 2.6 (1.4-5.7) K/uL Lymph # (Auto) 2.9 H (0.6-2.4) K/uL [place] # (Auto) 0.6 (0.0-0.8) K/uL Eos # (Auto) 0.6 (0.0-0.7) K/uL Baso # (Auto) 0.1 (0.0-0.1) K/uL Nucleated RBC % 0.0 /100WBC Nucleated RBCs # 0 K/uL Sodium 139 (136-148) mmol/L Potassium 4.5 (3.5-5.1) mmol/L Chloride 106 (98-107) mmol/L Carbon Dioxide 25.7 (21.0-32.0) mmol/L BUN 12 (7.0-18.0) mg/dL Creatinine 1.0 (0.8-1.3) mg/dL Est Cr Clr Drug Dosing 114.17 mL/min Estimated GFR (MDRD) > 60.0 ml/min Glucose 89 (74-106) mg/dL Calcium 8.3 L (8.5-10.1) mg/dL Med Orders - Current: Current Medications Amoxicillin (Amoxil) 500 mg PO Q12HR [facility] Last Admin: 10/03/18 09:29 Dose: 500 mg Clarithromycin (Biaxin) 500 mg PO BID [facility] Last Admin: 10/03/18 09:28 Dose: 500 mg Enoxaparin Sodium (Lovenox) 40 mg SUBCUT Q24H [facility] Last Admin: 10/03/18 06:39 Dose: 40 mg Sodium Chloride (Normal Saline) 1,000 mls @ 125 mls/hr IV ASDIRECTED [facility] Last Admin: 10/03/18 04:36 Dose: 125 mls/hr Pantoprazole Sodium 40 mg/ (Sodium Chloride) 10 mls @ 300 mls/hr IVPUSH BID [facility] Last Admin: 10/03/18 09:33 Dose: 300 mls/hr Sodium Chloride (Saline Flush) 10 ml FLUSH ASDIRECTED PRN PRN Reason: Keep Vein Open Sodium Chloride (Saline Flush) 2.5 ml FLUSH ASDIRECTED PRN PRN Reason: Keep Vein Open Discontinued Medications Sodium Chloride (Normal Saline) 1,000 mls @ 999 mls/hr IV STAT ONE Stop: 10/02/18 04:15 Last Admin: 10/02/18 03:22 Dose: 999 mls/hr Iopamidol (Isovue-370 (76%)) 100 ml IVPUSH ONETIME ONE Stop: 10/02/18 04:19 Last Admin: 10/02/18 04:28 Dose: 100 ml Ketorolac Tromethamine (Toradol) 30 mg IVPUSH ONETIME ONE Stop: 10/02/18 03:16 Last Admin: 10/02/18 03:26 Dose: 30 mg Morphine Sulfate (Morphine) 4 mg IVPUSH ONETIME ONE Stop: 10/02/18 03:16 Last Admin: 10/02/18 03:26 Dose: 4 mg Morphine Sulfate (Morphine) 2 mg IVPUSH ONETIME ONE Stop: 10/02/18 05:23 Last Admin: 10/02/18 05:27 Dose: 2 mg Morphine Sulfate (Morphine) 2 mg IVPUSH Q4H PRN PRN Reason: Pain (severe 7-10) Stop: 10/03/18 06:45 Last Admin: 10/03/18 04:35 Dose: 2 mg Ondansetron HCl (Zofran) 4 mg IVPUSH ONETIME ONE Stop: 10/02/18 03:16 Last Admin: 10/02/18 03:25 Dose: 4 mg Pantoprazole Sodium (Protonix Iv) 80 mg IVPUSH .BOLUS ONE Stop: 10/02/18 04:11 Last Admin: 10/02/18 04:28 Dose: 80 mg Sodium Chloride (Normal Saline) 20 ml FLUSH NOW STA Stop: 10/02/18 04:16 Last Admin: 10/02/18 04:28 Dose: 20 ml - Exam General: Alert, Oriented GI/Abdominal Exam: Normal Bowel Sounds, Soft, No Distention - Problem List Review Problem List Initiated/Reviewed/Updated: Yes - My Orders Last 24 Hours: Active Orders 24 hr Category Date Time Status Clear Liquid Diet [DIET] Diet 10/03/18 Lunch Active Amoxicillin [Amoxil] Med 10/02/18 09:00 Active 500 mg PO Q12HR Clarithromycin [Biaxin] Med 10/02/18 09:00 Active 500 mg PO BID Pantoprazole [ProTONIX IV] 40 mg Med 10/02/18 09:00 Active Sodium Chloride 0.9% [Normal Saline] 10 ml IVPUSH BID Medication Orders Amoxicillin (Amoxil) 500 mg PO Q12HR [facility] Last Admin: 10/03/18 09:29 Dose: 500 mg Admin: 10/02/18 20:29 Dose: 500 mg Admin: 10/02/18 09:01 Dose: 500 mg Clarithromycin (Biaxin) 500 mg PO BID [facility] Last Admin: 10/03/18 09:28 Dose: 500 mg Admin: 10/02/18 20:28 Dose: 500 mg Admin: 10/02/18 09:00 Dose: 500 mg Enoxaparin Sodium (Lovenox) 40 mg SUBCUT Q24H [facility] Last Admin: 10/03/18 06:39 Dose: 40 mg Admin: 10/02/18 08:02 Dose: 40 mg Sodium Chloride (Normal Saline) 1,000 mls @ 125 mls/hr IV ASDIRECTED [facility] Last Admin: 10/03/18 04:36 Dose: 125 mls/hr Infusion: 10/03/18 00:02 Dose: 125 mls/hr Admin: 10/02/18 16:02 Dose: 125 mls/hr Infusion: 10/02/18 15:50 Dose: 125 mls/hr Admin: 10/02/18 07:50 Dose: 125 mls/hr Pantoprazole Sodium 40 mg/ (Sodium Chloride) 10 mls @ 300 mls/hr IVPUSH BID [facility] Last Admin: 10/03/18 09:33 Dose: 300 mls/hr Infusion: 10/02/18 20:30 Dose: 300 mls/hr Admin: 10/02/18 20:28 Dose: 300 mls/hr Infusion: 10/02/18 08:59 Dose: 300 mls/hr Admin: 10/02/18 08:57 Dose: 300 mls/hr Sodium Chloride (Saline Flush) 10 ml FLUSH ASDIRECTED PRN PRN Reason: Keep Vein Open Sodium Chloride (Saline Flush) 2.5 ml FLUSH ASDIRECTED PRN PRN Reason: Keep Vein Open - Assessment Assessment (Free Text/Narrative):: Pain much improved w bowel rest; doing well, avss; if dc home fu w me prn; thanks for the consult and care of this pleasant gentleman - Plan Plan (Free Text/Narrative):: Pain much improved w bowel rest; doing well, avss; if dc home fu w me prn; thanks for the consult and care of this pleasant gentleman
== END 2018-10-03 11:00 | disposition home or self-care (01) ==
LOC: MW.ED 03:12 → MW.MS 05:37
PROVIDERS: ADMIT Internal Medicine; ATTEND Internal Medicine
DX: K85.20 Alcohol induced acute pancreatitis without necrosis or infection (principal); K86.1 Other chronic pancreatitis; B96.81 Helicobacter pylori [H. pylori] as the cause of diseases classified elsewhere; F10.10 Alcohol abuse, uncomplicated; F17.290 Nicotine dependence, other tobacco product, uncomplicated; E66.9 Obesity, unspecified; Z68.33 Body mass index [BMI] 33.0-33.9, adult; F15.11 Other stimulant abuse, in remission; Z79.2 Long term (current) use of antibiotics; Z79.899 Other long term (current) drug therapy
CPT/HCPCS: 36415; 74177; 80048; 80053; 80305; 81001; 82150; 83605; 83690; 83735; 85025; 85610; 86140; 86677; 87086; 96361; 96372; 96374; 96375; 96376; 99285; A9270; C9113; G0378; J1650; J1885; J2270; J2405; J7040; J7050; Q9967; 99284